=== PATIENT | male | born 1965 | race Caucasian/White ===

== ENCOUNTER 2024-04-04 20:08 | Emergency (ER) | payer BC, SELFPAY ==
[2024-04-04 20:08] VITALS: BMI 26.4
[2024-04-04 20:10] VITALS: BP 166/84
[2024-04-04 21:09] VITALS: BP 131/91
[2024-04-04 21:24] LABS: % Basophils 0.7 % (0-2); % Eosinophils 1.1 % (0-6); % Immature Granulocytes 0.1 % (0-0.5); % Lymphocytes 40.9 % (20.5-51.1); % Monocytes 6.2 % (1.7-9.3); Absolute Basophils 0.1 10^3/uL (0-0.2); Absolute Eosinophils 0.1 10^3/uL (0-0.7); Absolute Monocytes 0.5 10^3/uL (0.1-0.6); Absolute Neutrophils 3.7 10^3/uL (1.4-6.5); Hematocrit 37.5 % (39.0-52.0); Hemoglobin 13.1 g/dL (13.0-18.0); Mean Corp Hgb Conc. 34.9 g/dL (33.0-37.0); Mean Corpuscular Hgb 30.3 pg (27.0-31.0); Mean Corpuscular Volume 86.6 fL (80.0-94.0); Mean Platelet Volume 10.8 fL (7.4-10.4); Nucleated Red Blood Cells % 0 % (-); Platelet Count 201 10^3/uL (130-400); Red Blood Cell Count 4.33 10^6/uL (4.70-6.10); Red Cell Dist. Width 13.6 % (11.5-14.5); White Blood Cell Count 7.3 10^3/uL (4.8-10.8)
[2024-04-04 21:33] LABS: Erythrocyte Sed Rate 14 mm/hour (0-20)
[2024-04-04 21:39] LABS: ALT (SGPT) 20 U/L (0-50); AST (SGOT) 26 U/L (17-59); Albumin 4.7 g/dl (3.5-5.0); Alkaline Phosphatase 42 U/L (38-126); Blood Urea Nitrogen 22 mg/dl (9-20); Calcium 9.6 mg/dl (8.4-10.2); Carbon Dioxide 21 mmol/L (22-30); Chloride 108 mmol/L (98-107); Estimated Creatinine Clearance 74 ml/min; Glucose 131 mg/dl (70-99); Potassium 4.4 mmol/L (3.5-5.1); Sodium 143 mmol/L (135-145); Total Bilirubin 0.3 mg/dl (0.2-1.3); Total Protein 7.2 g/dl (6.3-8.2); eGFR > 60.00
[2024-04-04 22:00] VITALS: BP 123/84
--- NOTE | 2024-04-04 22:49 | ED.GENMED ---
History of Present Illness
General
Chief Complaint: Visual Problem
Source: patient
Exam Limitations: none
Time Seen by Provider: 04/04/24 20:27
Nursing documentation reviewed up to this point in time: agreed with
History of Present Illness
History of Present Illness:
This a pleasant 58-year-old male who presents with right eye 'floaters 'that been present since last evening. For the last 24 hours he has had some streaking and flashing. Patient does feel right eye pressure with some blurry vision. Patient
denies any peripheral vision abnormalities. He does follow with an eye doctor in [place]. Denies fever or chills.
Past History
Past History
ED Past Medical History: Hypercholesterolemia and Other (Hiatal hernia)
ED Past Surgical History: Other
Social History
Tobacco: Non-smoker
Drug: None
Personal:
Living: with family
Employment: Employed
Family History
Family History: Negative Early CAD
Phy Exam
General Physical Exam
General Presentation: well appearing and no apparent distress
General Skin: warm and dry
General Habitus: normal
General Mental: alert
General Hydration: appears well hydrated
ENT Exam
ENT Exam: EOMI, pharynx normal, neck supple and normocephalic
Eye Exam
Eye Exam: PERRL, EOMI and disc sharp
Eye Exam General: PERRL: bilateral and EOM intact: bilateral
Pupil Exam: Bilateral: round and reactive
Conjunctival Changes: bilateral: none
Type of Exam: fluorescein
Tonometry: Side: Right
Pressure: 20
Cardiovascular Exam
Cardiovascular Exam: regular rate/rhythm, no edema, no murmur and normal peripheral pulses
Pulmonary Exam
Pulmonary Exam: lungs clear, no respiratory distress, no rales, no crackles, no rhonchi, no stridor, no wheezing and no cough
Gastrointestinal Exam
Gastrointestinal Exam: normal bowel sounds, non tender, soft, no organomegaly, no pulsatile mass and non distended
Neurological Exam
Neurological Exam: alert, oriented x3, no motor deficits and speech normal
Musculoskeletal Exam
Musculoskeletal Exam: full ROM and no edema
Skin Exam
Skin Exam: normal color, warm/dry, no rash and no petechia
Psychiatric Exam
Psychiatric Exam: normal mood/affect
Course
Orders/Labs/Results
Orders:
Orders
04/04/24 20:28
CT Head W/o Iv Contrast Urgent
Comment:
Reason For Exam: VA changed
04/04/24 21:11
Complete Blood Count/With Diff Urgent
Comprehensive Metabolic Panel Urgent
Sed Rate [Erythrocyte Sed Rate] Urgent
Abnormal Lab Results
04/04/24
21:11
RBC 4.33 L 10^6/uL
(4.70-6.10)
Hct 37.5 L %
(39.0-52.0)
MPV 10.8 H fL
(7.4-10.4)
Chloride 108 H mmol/L
(98-107)
Carbon Dioxide 21 L mmol/L
(22-30)
BUN 22 H mg/dl
(9-20)
Glucose 131 H mg/dl
(70-99)
04/04/24 21:11
04/04/24 21:11
Vital Signs
Initial and Last Documented VS:
Initial Vital Signs
Temp Pulse Resp BP Pulse Ox
97.9 F 98 22 166/84 95
04/04/24 20:10 04/04/24 20:10 04/04/24 20:10 04/04/24 20:10 04/04/24 20:10
Last Documented Vital Signs
Temp Pulse Resp BP Pulse Ox
97.9 F 90 20 123/84 96
04/04/24 20:10 04/04/24 22:00 04/04/24 22:00 04/04/24 22:00 04/04/24 22:00
*Critical Care Note
Total Time (30-74mins, 75-104mins- exclusive of procedures): Not Applicable
Update Note
Update Note:
POC ultrasound of the retina shows no obvious retinal detachment. CT scan normal. Intraocular pressure in right eye is 20, left eye is 19. No corneal abrasion. No foreign body. No field cut deficits on exam
ED Attending Note
-
Portions of this chart may have been created with voice recognition software.� Occasional wrong word or��sound alike� substitutions may have occurred due to the inherent limitations of voice recognition software.
Discharge Plan
Departure
Patient Disposition: Home (Routine Discharge)
Date of Disposition: 04/04/24
Time of Disposition: 22:55
Patient with high blood pressure during this ER visit?: Yes
Condition: Good
Discharge Problem:
Acute right eye pain
Instructions: Floaters in the Eye, BLOOD PRESSURE
Prescriptions:
No Action
sucralfate 1 GM/10 ML suspension
1 gm PO ACHS Qty: 200 0RF
Referrals:
Bob Horowitz MD [Active] -
Tacho Erwin MD [Family Provider] -
Activity Restrictions/Additional Instructions:
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
It was a pleasure meeting you and taking part in your care. We hope for your continued healing and wellness.
Please read discharge instructions in their entirety. However, they are for general education and may not describe your exact diagnosis at discharge. Information on your ER visit and medical conditions were discussed with you along with appropriate
follow up information...
If indicated, please take your medications as instructed and indicated on discharge paperwork.
Please schedule a follow up appointment as directed. Call to schedule an appointment
Please return to the emergency department with ANY change in, persisting, or worsening of symptoms. If any of your symptoms do not improve, or persist, or become more severe within 6-12 hours, please return to the emergency department for further
care.
Please return to the emergency department if you develop a headache, neck pain/stiffness, fever greater than 100.4F, chest pain, shortness of breath, persistent nausea, vomiting, slurred speech, difficulty walking, numbness/tingling, weakness, signs
of infection or any other symptoms that are worrisome to you.
If you have any questions or concerns please do not hesitate to call the Hospital at or E-mail me directly at [email or web address]
Interventions
Interventions:
*Risk Screen - Suicide Last Done: 04/04/24 20:10
*General Assessment Last Done: 04/04/24 21:15
*Neglect/Abuse Screening Last Done: 04/04/24 20:10
ED- Fall Risk Assessment Last Done: 04/04/24 21:15
*ED COVID-19 Vaccine History Last Done: 04/04/24 21:15
*Nursing Disposition Last Done: 04/04/24 23:15
ED- Neurological Assessment Last Done: 04/04/24 21:15
ED-EENT Assessment Last Done: 04/04/24 21:15
ED Swallowing Screen Last Done: 04/04/24 21:15
Discharge Date and Time
Discharge Date/Time: 04/04/24 23:30
Print Language: SAMMARINESE
== END 2024-04-04 23:30 | disposition home or self-care (01) ==
LOC: EMR 20:08
PROVIDERS: EMERGENCY PHYSICIAN Student in an Organized Health Care Education/Training Program; FAMILY PHYSICIAN Internal Medicine
DX: H57.11 Ocular pain, right eye (principal); R03.0 Elevated blood-pressure reading, without diagnosis of hypertension
CPT/HCPCS: 99285; 70450; 80053; 85025; 85652